=== PATIENT | female | born 1985 | race Native Hawaiian/Other Pacific Islander ===

== ENCOUNTER 2017-11-19 14:02 | Emergency (ER) | payer BC ==
[~2017-11-19] VITALS: Ht 152.4 cm; Wt 47.6 kg
[2017-11-19] MEDS ORDERED: BENADRYL (14:24)
[2017-11-19] MEDS ORDERED: CLARITIN (14:24)
[2017-11-19] MEDS ORDERED: IV NORMAL SALINE 1000 ML BAG IV ONE (14:45)
[2017-11-19] MEDS ORDERED: HYDROMORPHONE 1 MG/1 ML DISP.SYRIN IV ONE (14:45)
[2017-11-19] MEDS ORDERED: ONDANSETRON 4 MG/2 ML VIAL IV ONE (14:45)
--- NOTE | 2017-11-19 14:46 | NUR ---
DR CLAYTON AT THE BEDSIDE FOR EVAL AND EXAM.
[2017-11-19 14:54] LABS: *BILIRUBIN,URIN NEGATIVE (NEGATIVE); *BLOOD, URINE 2+ (NEGATIVE); *CLARITY,URINE SLIGHTLY CLOUDY (CLEAR); *COLOR,URINE YELLOW (YELLOW); *KETONES,URINE NEGATIVE (NEGATIVE); *UROBILINOGEN,URINE 0.2 E.U./dl (NORMAL); LEUKOCYTE ESTERASE ,URINE NEGATIVE (NEGATIVE); NITRITE, URINE NEGATIVE (NEGATIVE); PH,URINE 5.5 (5.0-8.0); UGLUCOSE NEGATIVE (NEGATIVE)
[2017-11-19 14:57] LABS: *URINE HCG, QUAL NEGATIVE (NEGATIVE)
[2017-11-19 15:05] LABS: BASOPHILS % (AUTO) 0.6 % (0.0-2.0); EOSINOPHILS % (AUTO) 0.9 % (0.0-7.0); HEMATOCRIT 32.3 % (31.2-41.9); LYMPHOCYTES # (AUTO) 0.9 K/uL (20.0-40.0); LYMPHOCYTES % (AUTO) 17.4 % (20.5-51.5); MEAN CORPUSCULAR HEMOGLOBIN 32.1 uug (24.7-32.8); MEAN CORPUSCULAR HGB CONC 34 g/dL (32.3-35.6); MEAN CORPUSCULAR VOLUME 93.9 fL (75.5-95.3); MONOCYTES # (AUTO) 0.3 K/uL (2.0-10.0); NEUTROPHILS % (AUTO) 75.1 % (38.5-71.5); PLATELET COUNT (AUTO) 214 K/uL (179-408); RED BLOOD CELL COUNT(AUTO) 3.44 MIL/uL (3.63-4.92); WHITE BLOOD COUNT (AUTO) 5.3 K/uL (3.8-11.8)
[2017-11-19 15:08] LABS: *PROTEIN,URINE 3+ (NEGATIVE)
[2017-11-19 15:10] LABS: WBC,URINE 0-3 /HPF (0-3)
[2017-11-19 15:11] LABS: BACTERIA,URINE MODERATE /HPF (NONE SEEN); MUCUS,URINE MANY /LPF (0-FEW); SQUAMOUS EPITHELIAL CELL,UR MODERATE /HPF (NONE SEEN)
[2017-11-19 15:13] LABS: CREATININE 0.9 mg/dL (0.6-1.3); POTASSIUM 3.9 mmol/L (3.5-5.1)
[2017-11-19] MEDS ORDERED: ONDANSETRON 4 MG/2 ML VIAL ONE (15:14)
[2017-11-19] MEDS ORDERED: HYDROMORPHONE 4 MG/1 ML DISP.SYRIN ONE (15:15)
[2017-11-19 15:19] LABS: BILIRUBIN,DIRECT 0.1 mg/dL (0.0-0.2); BILIRUBIN,TOTAL 0.4 mg/dL (0.2-1.0); TOTAL PROTEIN, SERUM 6.2 g/dL (6.4-8.2)
[2017-11-19] MEDS ORDERED: CEFTRIAXONE 1 G in IV DEXTROSE 5% 50 ML IV ONE (15:45)
[2017-11-19 16:00] VITALS: BP 118/77
--- NOTE | 2017-11-19 16:03 | NUR ---
Patient discharged to home in stable conditon. Written and verbal after care instructions given. Patient verbalizes understanding of instructions.
== END 2017-11-19 16:01 | disposition home or self-care (01) ==
LOC: ER 14:02
DX: N39.0 Urinary tract infection, site not specified (principal)
CPT/HCPCS: 36415; 83690; 84703; 85025; 87086; A4663; J1170; J2405; J7030